=== PATIENT | female | born 1985 | race Caucasian/White ===

== ENCOUNTER 2017-11-16 11:34 | Inpatient (IN) ==
[2017-11-16] MEDS ORDERED: HYDROmorphone PF Inj 2 MG/ML Vial IV.PUSH ONE ×2 (11:46→12:38)
[2017-11-16] MEDS: Sod Chloride 0.9% Inj 1,000 ML IV.CONT SCH ×2 (11:54→21:03)
--- NOTE | 2017-11-16 11:55 | ED ---
HPI General Chief Complaint: Extremity Injury, Upper Stated Complaint: Right Arm Complaint Time Seen by Provider: 11/16/17 11:46 Source: patient and EMS Mode of arrival: EMS Limitations: physical limitation History of Present Illness HPI narrative: 32-year-old female complains of right upper arm and right elbow pain. [place] the [place] this [place]. Patient denies loss of consciousness. Patient denies any headache or neck pain. Patient denies any chest pain or shortness of breath. Patient denies abdominal pain. Patient denies any back pain. Patient complains of severe sharp pain localized to the right upper arm and right elbow. Patient states that the pain is worse with movement of the arm. Patient was given morphine 6 mg IV by EMS prior to arrival. complaint: injury to: right, arm and elbow Onset (ago): minute(s) Other Extremity Injury: Right: elbow and arm Other injuries: none Place: outdoors Severity: severe Severity scale (1-10): 10 Relieving factors: none Exacerbating factors: none, immobilization and movement of extremity Context: fall Associated symptoms: denies other symptoms Treatments prior to arrival: cold therapy and splint Related Data Previous Rx's Medication Instructions Recorded oxycodone-acetaminophen [Percocet] 1 tab PO Q3-4H PRN #50 tab 11/20/17 Allergies Allergy/AdvReac Type Severity Reaction Status Date / Time No Known Allergies Allergy Unverified 11/16/17 11:44 Review of Systems ROS: all other systems reviewed are negative PMFSH Medical History Medical History Medical history unknown (Acute) Surgical History Surgical History No history of previous surgery (Acute) Social History Social History Substance History: No History of Abuse Second Hand Smoke Exposure: No Smoking Status: Former smoker How Often Do You Have a Drink Containing Alcohol: Monthly or less Recent Travel in [facility] within the Last 8 Weeks: No Recent Out of Country Travel within the Last 8 Weeks: No Immunization History Tetanus Immunization: Unsure Hx Influenza Vaccine This Season: No Exam Narrative Exam Narrative: GENERAL: Well-nourished, well-developed patient. SKIN: Focused skin assessment warm/dry. HEAD: Normocephalic. EYES: No scleral icterus. No injection or drainage. NECK: Supple, trachea midline. No JVD or lymphadenopathy. CARDIOVASCULAR: Regular rate and rhythm without murmurs, gallops, or rubs. RESPIRATORY: Breath sounds equal bilaterally. No accessory muscle use. GASTROINTESTINAL: Abdomen soft, non-tender, nondistended. MUSCULOSKELETAL: Patient has severely tenderness on palpation of the mid to distal right humerus and right elbow. Mild deformity posterior aspect right elbow joint. Limited range of motion of the right elbow secondary to pain. Sensory motor function distally intact. BACK: Nontender without obvious deformity. No CVA tenderness. Neurologic exam normal. Course Initial Documented Vital Signs Temperature 98 F 11/16/17 11:38 Pulse Rate 68 11/16/17 11:38 Respiratory Rate 18 11/16/17 11:38 Blood Pressure 115/75 11/16/17 11:38 Pulse Oximetry 98 11/16/17 11:38 Last Documented Vital Signs Temperature 97.7 F 11/20/17 08:00 Pulse Rate 78 11/20/17 08:00 Respiratory Rate 18 11/20/17 08:00 Blood Pressure 90/53 L 11/20/17 08:00 Pulse Oximetry 98 11/20/17 08:00 Medical Decision Making MDM Narrative Medical decision making narrative: 32-year-old female with right arm and right elbow injury. Status post fall. Patient was given morphine 6 mg IV by EMS prior to arrival. Dilaudid 1 mg IV. Zofran 4 mg IV. Normal saline solution 125 cc an hour. Medical Screen Exam Complete: Yes Emergency Medical Condition: Yes Lab Data Result diagrams: 11/18/17 07:55 11/18/17 07:55 Lab Results 11/16/17 11/16/17 11/18/17 Range/Units 12:15 12:15 07:55 WBC 10.8 8.8 (4.0-11.0) th/mm3 RBC 3.97 L 3.46 L (4.00-5.30) mil/mm3 Hgb 12.1 10.6 L (11.6-15.3) gm/dL Hct 34.9 L 30.3 L (35.0-46.0) % MCV 88.0 87.7 (80.0-100.0) fL MCH 30.6 30.7 (27.0-34.0) pg MCHC 34.8 35.1 (32.0-36.0) % RDW 12.8 12.3 (11.6-17.2) % Plt Count 227 202 (150-450) th/mm3 MPV 8.0 8.7 (7.0-11.0) fL Neut % (Auto) 80.3 H 67.0 (16.0-70.0) % Lymph % (Auto) 13.2 23.9 (9.0-44.0) % Polk % (Auto) 5.0 8.1 H (0.0-8.0) % Eos % (Auto) 0.8 0.7 (0.0-4.0) % Baso % (Auto) 0.7 0.3 (0.0-2.0) % Neut # (Auto) 8.6 H 5.9 (1.8-7.7) th/mm3 Lymph # (Auto) 1.4 2.1 (1.0-4.8) th/mm3 Polk # (Auto) 0.5 0.7 (0.0-0.9) th/mm3 Eos # (Auto) 0.1 0.1 (0.0-0.4) th/mm3 Baso # (Auto) 0.1 0.0 (0.0-0.2) th/mm3 WBC Differential . . Differential Comment Auto diff final Auto diff final Sodium 142 (136-145) meq/L Potassium 3.6 (3.5-5.1) meq/L Chloride 109 H (98-107) meq/L Carbon Dioxide 23.9 (21.0-32.0) meq/L Anion Gap 9 (5-15) meq/L BUN 12 (7-18) mg/dL Creatinine 0.79 (0.50-1.00) mg/dL Estimated GFR 84 L (>89) mL/min Random Glucose 92 (74-106) mg/dL Calcium 7.9 L (8.5-10.1) mg/dL 11/18/17 Range/Units 07:55 WBC (4.0-11.0) th/mm3 RBC (4.00-5.30) mil/mm3 Hgb (11.6-15.3) gm/dL Hct (35.0-46.0) % MCV (80.0-100.0) fL MCH (27.0-34.0) pg MCHC (32.0-36.0) % RDW (11.6-17.2) % Plt Count (150-450) th/mm3 MPV (7.0-11.0) fL Neut % (Auto) (16.0-70.0) % Lymph % (Auto) (9.0-44.0) % Polk % (Auto) (0.0-8.0) % Eos % (Auto) (0.0-4.0) % Baso % (Auto) (0.0-2.0) % Neut # (Auto) (1.8-7.7) th/mm3 Lymph # (Auto) (1.0-4.8) th/mm3 Polk # (Auto) (0.0-0.9) th/mm3 Eos # (Auto) (0.0-0.4) th/mm3 Baso # (Auto) (0.0-0.2) th/mm3 WBC Differential Differential Comment Sodium 141 (136-145) meq/L Potassium 3.7 (3.5-5.1) meq/L Chloride 105 (98-107) meq/L Carbon Dioxide 27.8 (21.0-32.0) meq/L Anion Gap 8 (5-15) meq/L BUN 8 (7-18) mg/dL Creatinine 0.62 (0.50-1.00) mg/dL Estimated GFR Greater than 89 (>89) mL/min Random Glucose 84 (74-106) mg/dL Calcium 7.7 L (8.5-10.1) mg/dL Imaging Data Attestation: I personally reviewed and interpreted this imaging study as follows : Radiologist's impression: Elbow X-Ray 11/16/17 11:47 CONCLUSION: Highly comminuted posteriorly displaced supra condylar fracture. The proximal radius and ulna appear intact. Humerus X-Ray 11/16/17 11:47 CONCLUSION: Comminuted displaced fracture of the distal humerus just above the level of the elbow. Elbow CT 11/16/17 12:48 CONCLUSION: 1. Oblique transcondylar fracture of the distal humerus with marked anterior angulation of the humeral shaft fracture. The oblique fracture does extend into the articulation with the olecranon but is not significantly displaced. 2. The radiocapitellar joint is intact. Proximal ulna and proximal radius are both intact Elbow X-Ray 11/17/17 00:00 CONCLUSION: Anatomic alignment. Discharge Plan Discharge Disposition Patient Disposition: 01 Discharge Home Discharge Condition Condition: Good Discharge Order Discharge Orders: Discharge Order (Routine); Ordered 11/19/17 Ordered By: Giulia Gu Orthopedic Clear for Discharge (Routine); Ordered 11/19/17 Ordered By: Alfredo Cage Physicians Team ED Provider: Hermelindo Fung Primary Care Provider: UNKNOWN, Attending Provider: Aleena Romero Other Providers: Tejas Ferrari ; Aiden Quinteros Status ED Status: Left Department Discharge Information Discharge Date/Time: 11/16/17 16:26
--- NOTE | 2017-11-16 12:24 | XR ---
EXAM DATE: 11/16/2017 12:21 PM EDT AGE/SEX: 32 years / Female INDICATIONS: Right distal humerus pain, fell CLINICAL DATA: This is the patient's initial encounter. Patient reports that signs and symptoms have been present for 1 day and indicates a pain score of 10/10. MEDICAL/SURGICAL HISTORY: None. None. COMPARISON: No prior exams available for comparison. FINDINGS: 2 views of the right humerus demonstrate a comminuted fracture of the distal humerus with displacemen t of the distal humerus posteriorly laterally. There is significant narrowing present. The adjacent o sseous structures appear intact. CONCLUSION: Comminuted displaced fracture of the distal humerus just above the level of the elbow. Electronically signed by: Shanita Fraser MD 11/16/2017 12:23 PM EDT
[2017-11-16 12:25] LABS: Baso # (Auto) 0.1 th/mm3 (0.0-0.2); Baso % (Auto) 0.7 % (0.0-2.0); Eos # (Auto) 0.1 th/mm3 (0.0-0.4); Eos % (Auto) 0.8 % (0.0-4.0); Hematocrit 34.9 % (35.0-46.0); Hemoglobin 12.1 gm/dL (11.6-15.3); Lymph # (Auto) 1.4 th/mm3 (1.0-4.8); Lymph % (Auto) 13.2 % (9.0-44.0); Mean Corpuscular HGB Conc 34.8 % (32.0-36.0); Mean Corpuscular Hemoglobin 30.6 pg (27.0-34.0); Mono # (Auto) 0.5 th/mm3 (0.0-0.9); Neut # (Auto) 8.6 th/mm3 (1.8-7.7); Neut % (Auto) 80.3 % (16.0-70.0); Platelet Count 227 th/mm3 (150-450); Red Blood Count 3.97 mil/mm3 (4.00-5.30); Red Cell Distribution Width 12.8 % (11.6-17.2); White Blood Count 10.8 th/mm3 (4.0-11.0)
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
[2017-11-16 12:38] LABS: Calcium 7.9 mg/dL (8.5-10.1); Carbon Dioxide 23.9 meq/L (21.0-32.0); Potassium 3.6 meq/L (3.5-5.1)
[2017-11-16] MEDS ORDERED: Acetaminophen 325 MG Tablet PO PRN (13:06)
[2017-11-16] MEDS ORDERED: Bisacodyl 10 MG Supp RECTAL PRN (13:06)
[2017-11-16] MEDS ORDERED: Zolpidem Tartrate 5 MG Tablet PO PRN (13:06)
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
[2017-11-16] MEDS ORDERED: HYDROmorphone PF Inj 2 MG/ML Vial IV.PUSH PRN (13:09)
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
[2017-11-16] MEDS: HYDROmorphone PF Inj 2 MG/ML Vial IV.PUSH PRN ×2 (18:11→21:02)
[2017-11-16] MEDS: Senna/Docusate Sodium 8.6/50 MG Tablet PO SCH (21:02)
[2017-11-17] MEDS: HYDROmorphone PF Inj 2 MG/ML Vial IV.PUSH PRN ×4 (01:01→20:08)
[2017-11-17] MEDS: Sod Chloride 0.9% Inj 1,000 ML IV.CONT SCH (04:58)
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
[2017-11-17] MEDS ORDERED: ceFAZolin 2 GM Premix Inj 2 GM/50 ML PIGGYBACK IV.SIG ONE (06:51)
[2017-11-17] MEDS ORDERED: ceFAZolin 1 GM Premix Inj 1 GM/50 ML FROZ.PIGGY IV.SIG ONE (07:06)
[2017-11-17] MEDS ORDERED: Metoprolol Tartrate 25 MG Tablet PO ONE (07:17)
[2017-11-17] MEDS ORDERED: Chlorhexidine Gluconate 2% 1 Pack (2 Cloths) TOPICAL ONE (07:17)
[2017-11-17] MEDS ORDERED: Sodium Chlor 0.9% Inj 500 ML IV.SIG SCH (08:00)
[2017-11-17] MEDS ORDERED: fentaNYL Citrate Inj 100 MCG/2 ML Ampul ONE ×2 (08:02→11:03)
[2017-11-17] MEDS ORDERED: Ketorolac Inj 30 MG/ML (IVP) Vial IV.PUSH ONE (08:15)
[2017-11-17] MEDS ORDERED: Lidocaine PF 1% Inj 5 ML Syringe INFILTRATN ONE (08:15)
[2017-11-17] MEDS ORDERED: Neostigmine Inj 5 MG/5 ML Syringe IV.PUSH ONE (08:15)
[2017-11-17] MEDS ORDERED: Phenylephrine/NS 1000 MCG/10ML Syringe IV.PUSH ONE (08:15)
[2017-11-17] MEDS ORDERED: Glycopyrrolate Inj 1 MG/5 ML Syringe IV.PUSH ONE (08:15)
[2017-11-17] MEDS ORDERED: Morphine Inj 4 MG/ML Vial IV.PUSH PRN ×2 (10:28→15:52)
[2017-11-17] MEDS ORDERED: Post-op Orders (for Pharmacy) OTHER STA (10:28)
--- NOTE | 2017-11-17 10:35 | P.OP ---
- Preoperative Diagnosis (1) Supracondylar fracture of right humerus with intercondylar extension Date of procedure: 11/17/17 Procedure: Open reduction internal fixation right distal humerus fracture Anesthesia: GETA Surgeon: Aiden Quinteros MD Waiter/Waitress Third Class: KIERSTEN Jane PA-C The surgical procedure was assisted by my physician switchboard operator assistant. My P.A. presence was necessary throughout this case for the manipulation and positioning of the surgical extremity. My P.A. was assisting me throughout the duration of this procedure. The skill set of a physician switchboard operator assistant was medically necessary to complete this procedure. During the surgical case the surgical clinical reviewer was working at the back table and the physician switchboard operator assistant was directly assisting me. Operation and Findings: Implants used: Synthes Details of procedure: Patient was seen and evaluated preoperatively. Preoperatively patient had some diminished sensation in her ulnar and median nerve distribution. Treatment options were discussed regarding her right distal humerus fracture including surgical and nonsurgical treatments. After detailed discussion of risk and benefits of procedure patient wishes to proceed with surgery. Risks of surgery include bleeding, infection, nonunion, malunion, painful hardware, loss of motion of shoulder and elbow, weakness and numbness of arm, ulnar nerve injury as well as medical competitions including blood clots stroke and . Patient was brought to operating room and placed on the OR table. GETA was administered by anesthesiologist. Patient was positioned in lateral decubitus position. Extremities were well-padded. Axillary roll was placed. Operative arm and shoulder were prepped with alcohol followed by Hibiclens and draped usual sterile fashion. Timeout procedure was performed. IV antibiotics were given prior to incision. A standard posterior approach was utilized. Subcutaneous tissues was dissected with Bovie. The lateral border of the triceps was elevated off of the distal humerus to expose the lateral column of the distal humerus. Fracture site was visualized. Next, the medial column of the distal humerus was exposed. The ulnar nerve was identified and protected throughout the procedure. The nerve was intact. The ulnar nerve was mobilized. The fracture was identified along the medial distal humerus. Soft tissue was removed from the fracture site. Fracture site was cleaned with curettes. At this point the fracture was reduced using fracture tenaculums. Both the medial and lateral components of the fracture reduced and excellent alignment. Fracture tenaculums were used to compress fracture fragments. Multiplanar fluoroscopy confirmed excellent of fracture. Synthes distal humerus plates were selected. The medial plate was provisionally held the bone with K wires. 3.5 cortical screws were placed to compress plate to bone. Multiple 2.7 locking screws were placed distally. Care was taken to keep screws from penetrating the articular surface. Multiple screws were placed in each side of the fracture. All screws were predrilled and premeasured for appropriate length. Next the lateral plate was placed along the posterior lateral humerus. Plate was provisionally held to bone with K wires. 3.5 cortical screws were used to compress plate to bone. Additional 2.7 locking screws were placed distally. K wires were removed. Final fluoroscopy revealed excellent alignment of fracture with well-placed hardware. Incision was thoroughly irrigated. Fascia was closed with #1 Vicryl, subcutaneous tissues closed with 3-0 Vicryl, and skin was closed with margo. Sterile dressings were applied. Needle and sponge counts were correct. Patient was placed into a sling, and then transferred to recovery room in stable condition
--- NOTE | 2017-11-17 10:42 | XR ---
EXAM DATE: 11/17/2017 10:35 AM EDT AGE/SEX: 32 years / Female INDICATIONS: ORIF right distal humerus fracture. CLINICAL DATA: This is the patient's subsequent encounter. Patient reports that signs and symptoms h ave been present for 2 days and indicates a pain score of Nonresponsive. MEDICAL/SURGICAL HISTORY: Non-responsive. Non-responsive. COMPARISON: No prior exams available for comparison. FINDINGS: Plate with screws is seen bridging the fracture of the distal humerus. Alignment is anatomic about th e elbow. CONCLUSION: Anatomic alignment. Electronically signed by: Hernandez Dennis MD 11/17/2017 10:41 AM EDT
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
[2017-11-17] MEDS ORDERED: *morphine SULFATE 4 MG/ML PERIprocedure ONLY ONE (11:03)
[2017-11-17] MEDS: Senna/Docusate Sodium 8.6/50 MG Tablet PO SCH ×2 (12:37→20:08)
[2017-11-17] MEDS: Calcium/Vitamin D 250/125 MG Tablet PO SCH ×2 (13:04→17:12)
[2017-11-17] MEDS ORDERED: HYDROmorphone PF Inj 2 MG/ML Vial IV.PUSH PRN (15:51)
--- NOTE | 2017-11-17 15:56 | P.PNIM ---
Subjective Interval history: Mrs. Beaulieu was afebrile with low BP (MAP in upper 60's) today; she was seen post-operatively from R humerus ORIF. Patient reports that she is very frustrated with her lack of pain control post- operatively, but that she is otherwise doing well. She reports prior surgery in April but denies opioid tolerance. She has not yet eaten but states that she is hungry. No chest pain, shortness of breath, or urinary difficulties reported. Patient states that her blood pressure is chronically low but does not report associated symptoms. She has 4 children at home; she is also stressed regarding post-discharge planning. Physical Exam Vital signs: Vital Signs 11/16/17 19:36 11/16/17 23:00 11/16/17 23:09 Temperature 97.4 F L 97.7 F Pulse Rate 73 77 Respiratory Rate 18 18 18 Blood Pressure 103/52 L 98/54 L Pulse Oximetry 93 L 94 L 11/17/17 00:59 11/17/17 02:56 11/17/17 03:48 Temperature 97.3 F L Pulse Rate 72 Respiratory Rate 18 18 18 Blood Pressure 92/51 L Pulse Oximetry 97 11/17/17 04:57 11/17/17 10:56 11/17/17 11:00 Temperature 97.4 F L Pulse Rate 90 89 Respiratory Rate 18 17 16 Blood Pressure 92/55 L 98/50 L Pulse Oximetry 99 100 11/17/17 11:15 11/17/17 11:30 11/17/17 11:40 Temperature 97.8 F Pulse Rate 89 69 70 Respiratory Rate 16 15 16 Blood Pressure 89/50 L 90/50 L 89/55 L Pulse Oximetry 100 100 100 11/17/17 12:00 11/17/17 13:35 Temperature 97.3 F L Pulse Rate 70 Respiratory Rate 18 Blood Pressure 94/52 L Pulse Oximetry 100 97 Intake & Output 11/16/17 11/17/17 11/17/17 18:59 06:59 18:59 Intake Total 100 / 100 2360 / 2360 900 / 900 Output Total 100 / 100 Balance 100 / 100 2360 / 2360 800 / 800 Weight 54.431 kg 54.4 kg Intake: IV 100 / 100 1999 NS Inj 1,000 ML @ 125 mls/hr IV 1999 .CONT .Q8H [facility] Rx#:[id number] Ofirmev Inj 1,000 mg In 100 ml 100 / 100 @ 400 mls/hr IV.SIG ONCE ONE Rx #:[id number] Oral 360 / 360 Anesthesia Amount 900 / 900 Output: Estimated Blood Loss 100 / 100 Other: # Voids 3 Date of Last Bowel Movement 11/15/17 # Bowel Movements 0 Narrative: GENERAL: No acute distress but in pain SKIN: Warm and dry. HEENT: MMM. HEART: RRR without murmurs; normal perfusion LUNGS: CTAB; normal rate ABDOMEN: +BS, soft, NT, ND EXTREMITIES: No LE edema. 2+ pedal pulses. RUE in splint post-operatively NEURO: Awake and alert. Sensation intact to right fingers but patient states her arm/feels feels asleep/in pain. Patient can extend fingers without increase in pain PSYCH: Teary; frustrated Results - Labs CBC & Chem 7: 11/16/17 12:15 11/16/17 12:15 - Imaging Impressions Elbow X-Ray 11/17/17 00:00 CONCLUSION: Anatomic alignment. Assessment and Plan - Assessment (1) Right humeral fracture Code(s): S42.301A - Unspecified fracture of shaft of humerus, right arm, initial encounter for closed fracture Status: Acute - Plan 32 year old female with no significant medical history [place] Right distal humerus fracture Impression: Distal humerus fracture. POD 0 ORIF XR elbow 11/16- highly comminuted posteriorly displaced supra condylar fracture. The proximal radius and ulna appear intact. Humerus XR 11/16- Comminuted displaced fracture of the distal humerus just above the level of the elbow Elbow CT- 1. Oblique transcondylar fracture of the distal humerus with marked anterior angulation of the humeral shaft fracture. The oblique fracture does extend into the articulation with the olecranon but is not significantly displaced. 2. The radiocapitellar joint is intact. Proximal ulna and proximal radius are both intact -Orthopedic surgery consulted -POD 0 today -Pain control -Due to excessive pain and patient frustration, will increase regimen -Dilaudid 1mg IV for break through pain -Morphine 4mg IV for 7-10 pain -Percocet 5/325mg for pain 4-6 - incentive spirometry -Stool softener DVT prophylaxis: holding chemical anticoagulation in anticipation of surgery, B/ L SCDs Code Status: Full code Discharge Planning: Per Ortho clearance (1) Right humeral fracture Qualifiers: Humerus Location: distal Fracture type: closed Fracture alignment: displaced
[2017-11-17] MEDS: ceFAZolin Inj 2,000 MG in Sodium Chlor 0.9% Inj 80 ML IV.SIG SCH (17:13)
[2017-11-18] MEDS: ceFAZolin Inj 2,000 MG in Sodium Chlor 0.9% Inj 80 ML IV.SIG SCH ×2 (00:45→11:26)
[2017-11-18] MEDS: HYDROmorphone PF Inj 2 MG/ML Vial IV.PUSH PRN ×6 (00:46→22:13)
--- NOTE | 2017-11-18 06:36 | P.PNOP ---
Subjective Interval history: Pain is controlled. Had difficulty overnight with pain Physical Exam Vital signs: Vital Signs 11/17/17 10:56 11/17/17 11:00 11/17/17 11:15 Temperature 97.4 F L Pulse Rate 90 89 89 Respiratory Rate 17 16 16 Blood Pressure 92/55 L 98/50 L 89/50 L Pulse Oximetry 99 100 100 11/17/17 11:30 11/17/17 11:40 11/17/17 12:00 Temperature 97.8 F 97.3 F L Pulse Rate 69 70 70 Respiratory Rate 15 16 18 Blood Pressure 90/50 L 89/55 L 94/52 L Pulse Oximetry 100 100 100 11/17/17 13:35 11/17/17 16:00 11/17/17 19:00 Temperature 97.9 F 97.7 F Pulse Rate 76 76 Respiratory Rate 18 18 Blood Pressure 94/54 L 85/48 L Pulse Oximetry 97 97 97 11/18/17 00:00 11/18/17 03:09 Temperature 97.5 F L 97.8 F Pulse Rate 88 66 Respiratory Rate 17 17 Blood Pressure 93/55 L 96/52 L Pulse Oximetry 96 Intake & Output 11/17/17 11/17/17 11/18/17 06:59 18:59 06:59 Intake Total 2360 / 2360 1480 / 1480 460 / 460 Output Total 500 / 500 Balance 2360 / 2360 980 / 980 460 / 460 Weight 54.4 kg 54.4 kg Intake: IV 1999 / 1999 100 / 100 100 / 100 NS Inj 1,000 ML @ 125 mls/hr IV 1999 / 1999 .CONT .Q8H [facility] Rx#:[id number] Ancef Inj 2,000 MG In NS Inj 80 100 / 100 100 / 100 ML @ 200 mls/hr IV.SIG Q8H [facility] Rx#:[id number] Oral 360 / 360 480 / 480 360 / 360 Anesthesia Amount 900 / 900 Output: Urine 400 / 400 Estimated Blood Loss 100 / 100 Other: # Voids 3 2 2 Date of Last Bowel Movement 11/15/17 11/15/17 # Bowel Movements 0 0 Narrative: Right upper extremity: Splint is intact and clean and dry. Distally she has intact sensation over radial and ulnar nerve. She has diminished sensation over the median nerve. She is able to fully extend her fingers and is able to make a fist. She has good capillary refills and distal pulses Results - Labs CBC & Chem 7: 11/16/17 12:15 11/16/17 12:15 - Imaging Impressions Elbow X-Ray 11/17/17 00:00 CONCLUSION: Anatomic alignment. Assessment and Plan - Assessment and Plan comminuted intra-articular displaced right distal humerus fracture with ORIF POD 1 Nonweightbearing right upper extremity Maintain splint Work on active motion of fingers and wrist Sling when out of bed Plan on discharge when pain is controlled -anticipate today Will follow-up with orthopedic in [place] in 2 weeks Pain medications on chart Acute pain exception. [facility] was accessed.
--- NOTE | 2017-11-18 09:15 | P.PNIM ---
Subjective Interval history: 32-year-old female with no significant past medical history admitted on 11/16 due to a right humeral fracture that occurred after a [place] the [place], patient is on vacation from [place]. Patient is status post ORIF , postoperative day #1. Patient is feeding, voiding, stooling well. Reports right arm pain which is not well controlled despite meds. Patient had significant discomfort overnight and minimal sleep. Patient is supposed to have PT today and is pending discharge based on pain management. Physical Exam Vital signs: Vital Signs 11/17/17 10:56 11/17/17 11:00 11/17/17 11:15 Temperature 97.4 F L Pulse Rate 90 89 89 Respiratory Rate 17 16 16 Blood Pressure 92/55 L 98/50 L 89/50 L Pulse Oximetry 99 100 100 11/17/17 11:30 11/17/17 11:40 11/17/17 12:00 Temperature 97.8 F 97.3 F L Pulse Rate 69 70 70 Respiratory Rate 15 16 18 Blood Pressure 90/50 L 89/55 L 94/52 L Pulse Oximetry 100 100 100 11/17/17 13:35 11/17/17 16:00 11/17/17 19:00 Temperature 97.9 F 97.7 F Pulse Rate 76 76 Respiratory Rate 18 18 Blood Pressure 94/54 L 85/48 L Pulse Oximetry 97 97 97 11/18/17 00:00 11/18/17 03:09 Temperature 97.5 F L 97.8 F Pulse Rate 88 66 Respiratory Rate 17 17 Blood Pressure 93/55 L 96/52 L Pulse Oximetry 96 Intake & Output 11/17/17 11/18/17 11/18/17 18:59 06:59 18:59 Intake Total 1480 / 1480 460 / 460 1000 / 1000 Output Total 500 / 500 Balance 980 / 980 460 / 460 1000 / 1000 Weight 54.4 kg Intake: IV 100 / 100 100 / 100 1000 / 1000 Ancef Inj 2,000 MG In NS Inj 80 100 / 100 100 / 100 ML @ 200 mls/hr IV.SIG Q8H LEON Rx#:[id number] Oral 480 / 480 360 / 360 Anesthesia Amount 900 / 900 Output: Urine 400 / 400 Estimated Blood Loss 100 / 100 Other: # Voids 2 2 Date of Last Bowel Movement 11/15/17 # Bowel Movements 0 Narrative: GENERAL: sitting while eating breakfast, appears to be in mild pain. SKIN: Warm and dry. HEAD: Normocephalic. EYES: No scleral icterus. No injection or drainage. NECK: Supple, trachea midline. No JVD or lymphadenopathy. CARDIOVASCULAR: Regular rate and rhythm without murmurs, gallops, or rubs. RESPIRATORY: Breath sounds equal bilaterally. No accessory muscle use. GASTROINTESTINAL: Abdomen soft, non-tender, nondistended. MUSCULOSKELETAL: No cyanosis, moderate edema of R hand. Sling in place. Able to open and close fist, good ROM of phalanges. BACK: Nontender without obvious deformity. No CVA tenderness. Results - Labs CBC & Chem 7: 11/16/17 12:15 11/16/17 12:15 - Imaging Impressions Elbow X-Ray 11/17/17 00:00 CONCLUSION: Anatomic alignment. Assessment and Plan - Assessment (1) Right humeral fracture Code(s): S42.301A - Unspecified fracture of shaft of humerus, right arm, initial encounter for closed fracture Status: Resolved - Plan 32-year-old female with no significant past medical history admitted on 11/16 due to a right humeral fracture, status post ORIF, postoperative day #1, has PT today, pending discharge based on pain management, HD#2 1. Right humeral fracture: Status post ORIF on 910, POD #1, poor pain control, has PT today and will be discharged pending pain control. Per Ortho can be discharged once pain control is adequate. Patient will follow up with Ortho in 2 weeks in [place] which is where she lives. 2. Hypotension: chronic, patient is at her baseline, asymptomatic, however since she is receiving pain meds will encourage ambulation, will also give a 250 mL bolus and reassess blood pressure. For now will give her p.o. pain meds and if her pain control is adequate after PT consider discharge. Code Status: full Discharge Planning: D/c once pain well controlled (1) Right humeral fracture Qualifiers: Humerus Location: distal Fracture type: closed Fracture alignment: displaced
[2017-11-18] MEDS: Calcium/Vitamin D 250/125 MG Tablet PO SCH ×3 (09:54→19:36)
[2017-11-18 09:55] LABS: Baso % (Auto) 0.3 % (0.0-2.0); Eos # (Auto) 0.1 th/mm3 (0.0-0.4); Eos % (Auto) 0.7 % (0.0-4.0); Hematocrit 30.3 % (35.0-46.0); Hemoglobin 10.6 gm/dL (11.6-15.3); Lymph # (Auto) 2.1 th/mm3 (1.0-4.8); Lymph % (Auto) 23.9 % (9.0-44.0); Mean Corpuscular HGB Conc 35.1 % (32.0-36.0); Mean Corpuscular Hemoglobin 30.7 pg (27.0-34.0); Mean Corpuscular Volume 87.7 fL (80.0-100.0); Mean Platelet Volume 8.7 fL (7.0-11.0); Mono # (Auto) 0.7 th/mm3 (0.0-0.9); Mono % (Auto) 8.1 % (0.0-8.0); Neut # (Auto) 5.9 th/mm3 (1.8-7.7); Platelet Count 202 th/mm3 (150-450); Red Blood Count 3.46 mil/mm3 (4.00-5.30); Red Cell Distribution Width 12.3 % (11.6-17.2); White Blood Count 8.8 th/mm3 (4.0-11.0)
[2017-11-18] MEDS: Senna/Docusate Sodium 8.6/50 MG Tablet PO SCH ×2 (09:55→20:06)
[2017-11-18 10:21] LABS: Anion Gap 8 meq/L (5-15); Blood Urea Nitrogen 8 mg/dL (7-18); Calcium 7.7 mg/dL (8.5-10.1); Carbon Dioxide 27.8 meq/L (21.0-32.0); Chloride 105 meq/L (98-107); Glomerular Filtration Rate Greater Than 89 mL/min (>89); Glucose,Random 84 mg/dL (74-106); Potassium 3.7 meq/L (3.5-5.1); Sodium 141 meq/L (136-145)
[2017-11-18] MEDS ORDERED: Sod Chloride 0.9% Inj 1,000 ML IV.SIG SCH (10:45)
[2017-11-18] MEDS: LORazepam 0.5 MG Tablet PO PRN (21:07)
[2017-11-19] MEDS: HYDROmorphone PF Inj 2 MG/ML Vial IV.PUSH PRN ×5 (02:30→20:54)
--- NOTE | 2017-11-19 06:24 | P.PNOP ---
Subjective Interval history: POD 2 s/p ORIF right distal humerus doing well. improving. states pain better controlled. out of bed on own Physical Exam Vital signs: Vital Signs 11/18/17 08:00 11/18/17 10:32 11/18/17 12:00 Temperature 98.1 F 98.1 F Pulse Rate 80 99 H Respiratory Rate 18 18 Blood Pressure 98/53 L 100/55 L Pulse Oximetry 100 98 100 11/18/17 16:25 11/18/17 18:21 11/18/17 20:00 Temperature 97.8 F 97.8 F Pulse Rate 79 81 91 H Respiratory Rate 18 20 Blood Pressure 90/55 L 104/53 L 101/54 L Pulse Oximetry 97 98 11/19/17 00:00 11/19/17 02:00 11/19/17 04:00 Temperature 97.9 F 97.9 F Pulse Rate 85 89 Respiratory Rate 20 17 Blood Pressure 89/50 L 103/51 L Pulse Oximetry 99 20 L Intake & Output 11/18/17 11/18/17 11/19/17 06:59 18:59 06:59 Intake Total 460 / 460 2620 / 2620 Balance 460 / 460 2620 / 2620 Weight 54.4 kg Intake: IV 100 / 100 2100 / 2100 Ancef Inj 2,000 MG In NS Inj 80 100 / 100 100 / 100 ML @ 200 mls/hr IV.SIG Q8H LEON Rx#:[id number] Oral 360 / 360 520 / 520 Other: # Voids 2 6 Date of Last Bowel Movement 11/15/17 11/15/17 11/15/17 # Bowel Movements 0 2 Narrative: RUE: dressings clean and dry. intact. +splint. NVI Results - Labs CBC & Chem 7: 11/18/17 07:55 11/18/17 07:55 Laboratory Results - last 24 hr 11/18/17 11/18/17 07:55 07:55 WBC 8.8 RBC 3.46 L Hgb 10.6 L Hct 30.3 L MCV 87.7 MCH 30.7 MCHC 35.1 RDW 12.3 Plt Count 202 MPV 8.7 Neut % (Auto) 67.0 Lymph % (Auto) 23.9 [place] % (Auto) 8.1 H Eos % (Auto) 0.7 Baso % (Auto) 0.3 Neut # (Auto) 5.9 Lymph # (Auto) 2.1 [place] # (Auto) 0.7 Eos # (Auto) 0.1 Baso # (Auto) 0.0 WBC Differential . Differential Comment Auto diff final Sodium 141 Potassium 3.7 Chloride 105 Carbon Dioxide 27.8 Anion Gap 8 BUN 8 Creatinine 0.62 Estimated GFR Greater than 89 Random Glucose 84 Calcium 7.7 L Assessment and Plan - Assessment and Plan comminuted intra-articular displaced right distal humerus fracture with ORIF POD 2 Nonweightbearing right upper extremity Maintain splint Work on active motion of fingers and wrist Sling when out of bed Plan on discharge when pain is controlled -anticipate today Will follow-up with orthopedic in [place] in 2 weeks Pain medications on chart [facility] Prescription Drug Monitoring Database has been queried and verified prior to prescribing the controlled substance. Acute pain exception. This patient has normal, predicted, physiological, and time limited response to an adverse mechanical stimulus associated with surgery, trauma, or acute illness as described in my notes. There is a lack of alternative treatment options other than to include the prescribed narcotic treatment for this condition.
[2017-11-19] MEDS: Senna/Docusate Sodium 8.6/50 MG Tablet PO SCH ×2 (08:48→20:10)
[2017-11-19] MEDS: Calcium/Vitamin D 250/125 MG Tablet PO SCH ×3 (08:48→17:43)
[2017-11-19] MEDS: LORazepam 0.5 MG Tablet PO PRN ×2 (08:50→20:56)
--- NOTE | 2017-11-19 10:04 | P.PN ---
Subjective Interval history: The patient is in bed, she still complaints of pain in her shoulder and not able to wean off pain meds. Ortho is ff. No fever or chills. No n/v/d/c. No sob. Physical Exam Vital signs: Vital Signs 11/18/17 10:32 11/18/17 12:00 11/18/17 16:25 Temperature 98.1 F 97.8 F Pulse Rate 99 H 79 Respiratory Rate 18 18 Blood Pressure 100/55 L 90/55 L Pulse Oximetry 98 100 97 11/18/17 18:21 11/18/17 20:00 11/19/17 00:00 Temperature 97.8 F 97.9 F Pulse Rate 81 91 H 85 Respiratory Rate 20 20 Blood Pressure 104/53 L 101/54 L 89/50 L Pulse Oximetry 98 99 11/19/17 02:00 11/19/17 04:00 11/19/17 08:00 Temperature 97.9 F 98.3 F Pulse Rate 89 79 Respiratory Rate 17 16 Blood Pressure 103/51 L 92/52 L Pulse Oximetry 20 L 96 Intake & Output 11/18/17 11/19/17 11/19/17 18:59 06:59 18:59 Intake Total 2620 / 2620 220 / 220 Balance 2620 / 2620 220 / 220 Weight 54.4 kg Intake: IV 2100 / 2100 Ancef Inj 2,000 MG In NS Inj 80 100 / 100 ML @ 200 mls/hr IV.SIG Q8H LEON Rx#:[id number] Oral 520 / 520 220 / 220 Other: # Voids 6 2 Date of Last Bowel Movement 11/15/17 11/15/17 # Bowel Movements 2 Narrative: GENERAL: 32 yo F, appears in nad CARDIOVASCULAR: Regular rate and rhythm without murmurs, gallops, or rubs. RESPIRATORY: Breath sounds equal bilaterally. No accessory muscle use. GASTROINTESTINAL: Abdomen soft, non-tender, nondistended. MUSCULOSKELETAL: No cyanosis, moderate edema of R hand. Sling in place. Able to open and close fist, good ROM of phalanges. BACK: Nontender without obvious deformity. No CVA tenderness. Results - Labs CBC & Chem 7: 11/18/17 07:55 11/18/17 07:55 Laboratory Results - last 24 hr 11/18/17 07:55 Sodium 141 Potassium 3.7 Chloride 105 Carbon Dioxide 27.8 Anion Gap 8 BUN 8 Creatinine 0.62 Estimated GFR Greater than 89 Random Glucose 84 Calcium 7.7 L Assessment and Plan - Plan (1) Right humeral fracture Code(s): S42.301A - Unspecified fracture of shaft of humerus, right arm, initial encounter for closed fracture Status: Resolved - Plan 32-year-old female with no significant past medical history admitted on 11/16 due to a right humeral fracture, status post ORIF, had PT, pending discharge based on pain management 1. Right humeral fracture: Status post ORIF on 11/17, poor pain control. Per Ortho can be discharged once pain control is adequate. Patient will follow up with Ortho in 2 weeks in [place] which is where she lives. 2. Hypotension: chronic, patient is at her baseline, asymptomatic, however since she is receiving pain meds will encourage ambulation, will also give a 250 mL bolus and reassess blood pressure. For now will give her p.o. pain meds and if her pain control is adequate after PT consider discharge. Code Status: full Discharge Planning: D/c once pain well controlled Not able to wean off pain meds
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
[2017-11-19] MEDS: oxyCODONE/Acetaminophen 10/325 Tablet PO PRN ×2 (18:33→22:33)
[2017-11-20] MEDS: oxyCODONE/Acetaminophen 10/325 Tablet PO PRN ×3 (01:51→08:35)
[2017-11-20] MEDS: HYDROmorphone PF Inj 2 MG/ML Vial IV.PUSH PRN ×3 (03:41→11:56)
--- NOTE | 2017-11-20 08:33 | P.PNOP ---
Subjective Interval history: Still continued to have difficulty with pain control. She is on Percocet and Dilaudid. Physical Exam Vital signs: Vital Signs 11/19/17 12:00 11/19/17 16:00 11/19/17 20:00 Temperature 97.8 F 97.8 F 97.7 F Pulse Rate 82 83 79 Respiratory Rate 16 14 16 Blood Pressure 110/56 L 98/51 L 99/55 L Pulse Oximetry 100 98 98 11/20/17 00:00 11/20/17 04:00 Temperature 97.7 F 98.1 F Pulse Rate 85 84 Respiratory Rate 16 16 Blood Pressure 94/55 L 94/49 L Pulse Oximetry 98 96 Intake & Output 11/19/17 11/20/17 11/20/17 18:59 06:59 18:59 Intake Total 600 / 600 Balance 600 / 600 Weight 54.2 kg Intake: Oral 600 / 600 Other: # Voids 3 4 Date of Last Bowel Movement 11/17/17 11/17/17 Narrative: Right upper extremity: No pain to palpation of shoulder. Splint in place. Intact sensation over radial and ulnar nerve continues to have decreased sensation over the median nerve. Improved sensation over index finger Results - Labs CBC & Chem 7: 11/18/17 07:55 11/18/17 07:55 - Procedures Right humeral fracture: Status post ORIF on 11/17 Assessment and Plan - Assessment and Plan comminuted intra-articular displaced right distal humerus fracture with ORIF POD 3 Nonweightbearing right upper extremity Maintain splint Work on active motion of fingers and wrist Sling when out of bed Plan on discharge when pain is controlled -anticipate today Will follow-up with orthopedic in [place] in 2 weeks Pain medications on chart [facility] Prescription Drug Monitoring Database has been queried and verified prior to prescribing the controlled substance. Acute pain exception. This patient has normal, predicted, physiological, and time limited response to an adverse mechanical stimulus associated with surgery, trauma, or acute illness as described in my notes. There is a lack of alternative treatment options other than to include the prescribed narcotic treatment for this condition.
[2017-11-20] MEDS: Senna/Docusate Sodium 8.6/50 MG Tablet PO SCH (08:35)
[2017-11-20] MEDS: Calcium/Vitamin D 250/125 MG Tablet PO SCH ×2 (08:35→12:47)
[2017-11-20] MEDS: LORazepam 0.5 MG Tablet PO PRN (09:50)
--- NOTE | 2017-11-20 11:24 | P.PNIM ---
Subjective Interval history: Patient is doing well overnight. She is feeding voiding and stooling well. She reports that she has continued pain but that it is relieved when she is given the pain medicine. Patient is anxious about having to fly home as well as having adequate pain control at home. She takes Ativan as needed anxiety at home as well as before flights. Physical Exam Vital signs: Vital Signs 11/19/17 12:00 11/19/17 16:00 11/19/17 20:00 Temperature 97.8 F 97.8 F 97.7 F Pulse Rate 82 83 79 Respiratory Rate 16 14 16 Blood Pressure 110/56 L 98/51 L 99/55 L Pulse Oximetry 100 98 98 11/20/17 00:00 11/20/17 04:00 11/20/17 08:00 Temperature 97.7 F 98.1 F 97.7 F Pulse Rate 85 84 78 Respiratory Rate 16 16 18 Blood Pressure 94/55 L 94/49 L 90/53 L Pulse Oximetry 98 96 98 Intake & Output 11/19/17 11/20/17 11/20/17 18:59 06:59 18:59 Intake Total 600 / 600 Balance 600 / 600 Weight 54.2 kg Intake: Oral 600 / 600 Other: # Voids 3 4 Date of Last Bowel Movement 11/17/17 11/17/17 Narrative: GENERAL: sitting comfortably in bed, in NAD. SKIN: Warm and dry. HEAD: Normocephalic. EYES: No scleral icterus. No injection or drainage. NECK: Supple, trachea midline. No JVD or lymphadenopathy. CARDIOVASCULAR: Regular rate and rhythm without murmurs, gallops, or rubs. RESPIRATORY: Breath sounds equal bilaterally. No accessory muscle use. GASTROINTESTINAL: Abdomen soft, non-tender, nondistended. MUSCULOSKELETAL: No cyanosis, or edema. R hand edema with good ROM and cap refill. Sling in place. BACK: Nontender without obvious deformity. No CVA tenderness. Results - Labs CBC & Chem 7: 11/18/17 07:55 11/18/17 07:55 - Procedures Right humeral fracture: Status post ORIF on 11/17 Assessment and Plan - Assessment (1) Right humeral fracture Code(s): S42.301A - Unspecified fracture of shaft of humerus, right arm, initial encounter for closed fracture Status: Resolved - Plan 32-year-old female with no significant past medical history admitted on 11/16 due to a right humeral fracture, status post ORIF, postoperative day #3, has PT today, pending discharge based on pain management, HD#5 1. Right humeral fracture: Status post ORIF on 910, still having pain when meds wear off, changed to Q3hrs per Ortho, patient reassured. Patient will follow up with Ortho in 2 weeks in [place] which is where she lives. 2. Hypotension: chronic, patient is at her baseline, asymptomatic. 3. Anxiety: takes Ativan at home PRN before flights, has not needed it in a few months, [employer] checked, no previous Rx in [place] noted, discussed addictive nature of med, Rx #4 for short term use only. 4. Dispo: D/C home, flight cancellation insurance form filled by me per patient request. Code Status: full Discussed Condition With: patient and Discharge Planning: D/c once pain well controlled (1) Right humeral fracture Qualifiers: Humerus Location: distal Fracture type: closed Fracture alignment: displaced
== END 2017-11-20 14:31 | disposition home or self-care (01) ==
LOC: NEPC 11:34 → NEDA 13:07 → N06 16:13
PROVIDERS: ADMIT Family Medicine; ATTEND Family Medicine
PROC: ORIFHUM (2017-11-17 08:28)